=== PATIENT | female | born 1970 | race Caucasian/White ===

== ENCOUNTER 2020-07-14 17:29 | Emergency (ER) | payer SELFPAY ==
[~2020-07-14] VITALS: Ht 165.1 cm; Wt 69.9 kg
[2020-07-14] MEDS ORDERED: SODIUM CHLORIDE 0.9% 1000ML 1,000 ML IV STA (17:37)
[2020-07-14] MEDS ORDERED: ASPIRIN 81 MG CHEW TAB PO ONE (17:45)
[2020-07-14 19:15] LABS: BASOPHILS % 0.4 % (0.0-1.0); EOSINOPHILS # (AUTO) 0.1 (0.0-0.4); EOSINOPHILS % 1.5 % (0.0-6.0); HEMATOCRIT 39.6 % (34.2-44.1); HEMOGLOBIN 13.2 g/dL (12.0-16.0); LYMPHOCYTES % 42.7 % (18.0-39.1); MEAN CORPUSCULAR HEMOGLOBIN 28.9 pg (28-32); MEAN CORPUSCULAR HGB CONC 33.3 g/dL (31-35); MEAN CORPUSCULAR VOLUME 86.8 fL (81-99); MONOCYTES # (AUTO) 0.5 (0.2-0.8); MONOCYTES % 7.3 % (4.4-11.3); NEUTROPHILS # (AUTO) 3.4 (2.1-6.9); PLATELET COUNT 288 x10e3/uL (140-360); RED BLOOD COUNT 4.56 x10e6/uL (3.6-5.1); RED CELL DISTRIBUTION WIDTH 12.7 % (11.7-14.4)
[2020-07-14 19:33] LABS: ALANINE AMINOTRANSFERASE 10 IU/L (0-55); ALBUMIN 3.8 g/dL (3.5-5.0); ALBUMIN/GLOBULIN RATIO 1.3 (0.8-2.0); ALKALINE PHOSPHATASE 105 IU/L (40-150); ANION GAP 12.9 mmol/L (8-16); BLOOD UREA NITROGEN 11 mg/dL (7-26); BUN/CREATININE RATIO 17 (6-25); CALCIUM 8.9 mg/dL (8.4-10.2); CARBON DIOXIDE 24 mmol/L (22-29); CHLORIDE 97 mmol/L (98-107); CREATINE KINASE 49 IU/L (29-168); CREATININE, SERUM 0.64 mg/dL (0.57-1.11); EST GLOMERULAR FILTRATION RATE > 60 ML/MIN (60-); GLUCOSE 92 mg/dL (74-118); POTASSIUM 3.9 mmol/L (3.5-5.1); SODIUM 130 mmol/L (136-145)
== END 2020-07-14 20:24 | disposition home or self-care (01) ==
LOC: ER 18:24
DX: R27.0 Ataxia, unspecified (principal); R05 Cough; R06.02 Shortness of breath
CPT/HCPCS: 36415; 70450; 71045; 80053; 82550; 82553; 83880; 84484; 85025; 93005; 99284

== ENCOUNTER 2021-01-31 14:16 | Emergency (ER) | payer BC, OTHER ==
[~2021-01-31] VITALS: Ht 165.1 cm; Wt 69.9 kg
== END 2021-01-31 18:55 | disposition left against medical advice (07) ==
LOC: ER 14:29
DX: S93.602A Unspecified sprain of left foot, initial encounter (principal); W01.0XXA Fall on same level from slipping, tripping and stumbling without subsequent striking against object, initial encounter; Y93.01 Activity, walking, marching and hiking; Y99.0 Civilian activity done for income or pay; I10 Essential (primary) hypertension; G40.909 Epilepsy, unspecified, not intractable, without status epilepticus; J45.909 Unspecified asthma, uncomplicated